=== PATIENT | female | born 1995 | race Caucasian/White ===

== ENCOUNTER 2024-03-14 10:31 | Emergency (ER) | payer MEDICAID, OTHER ==
[~2024-03-14] VITALS: Ht 157.5 cm; Wt 50.8 kg
[2024-03-14 10:39] VITALS: BP 112/72; TEMP 98.7; O2SAT 99
[2024-03-14] MEDS ORDERED: MECL-159 PO (10:52)
== END 2024-03-14 11:03 | disposition home or self-care (01) ==
LOC: ER 10:43
DX: R42 Dizziness and giddiness (principal)